=== PATIENT | female | born 1955 | race Two or more races ===

== ENCOUNTER → 2017-12-05 | Outpatient (CLI) | payer BC ==
[~2017-12-05] MED LIST: ARTHRITIS PAIN650 M5 PO; BACTRIM,SEPT1 TABLET PO; BIOTIN 5000MCG PO; CALCIUM600 M1 PO; ESCITALOPRAM OX20 MG PO; FLAGYL500 MG PO; MINOCYCLINE HCL50 MG PO; MULTIVITAMIN1 EAC2 PO; OMEPRAZOLE20 MG PO; PERCOCET 5/31 TABLET PO; PROMETHAZINE HC25 M1 PO
== END | disposition home or self-care (01) ==
LOC: CDC 11:25
DX: Z01.810 Encounter for preprocedural cardiovascular examination (principal); R94.31 Abnormal electrocardiogram [ECG] [EKG]
CPT/HCPCS: 93000

== ENCOUNTER 2017-12-16 07:07 | Day surgery (SDC) | payer BC ==
[~2017-12-16] VITALS: Ht 172.7 cm; Wt 72.5 kg
[~2017-12-16 07:07] MED LIST changes: +CALCIUM 600 +1 EA12 PO; -CALCIUM600 M1 PO; -ESCITALOPRAM OX20 MG PO; +LEXAPRO20 MG PO
[2017-12-16 07:40] VITALS: BP 138/64
[2017-12-16 11:43] VITALS: BP 160/74
[2017-12-16 12:42] VITALS: BP 136/67
== END 2017-12-16 12:43 | disposition home or self-care (01) ==
LOC: SDC 07:07
DX: N84.0 Polyp of corpus uteri (principal); N88.2 Stricture and stenosis of cervix uteri; N95.0 Postmenopausal bleeding; N85.4 Malposition of uterus; N85.8 Other specified noninflammatory disorders of uterus; D64.9 Anemia, unspecified; K52.9 Noninfective gastroenteritis and colitis, unspecified; K21.9 Gastro-esophageal reflux disease without esophagitis; M85.80 Other specified disorders of bone density and structure, unspecified site; G25.81 Restless legs syndrome; Z88.0 Allergy status to penicillin; Z88.6 Allergy status to analgesic agent; Z91.013 Allergy to seafood
CPT/HCPCS: 88305; J1100; J1170; J1885; J2405; J3010